=== PATIENT | female | born 1975 | race Two or more races ===

== ENCOUNTER → 2022-03-04 | Outpatient (CLI) | payer BC ==
--- NOTE | 2022-03-04 17:12 | RAD ---
DATE: 03/04/2022 EXAM: US BREAST RT, MG DIAGNOSTIC BILAT HISTORY: Clear right nipple discharge for one year COMPARISON: Mammograms 12/22/2019 and 01/11/2019 from outside hospital This study was interpreted with the benefit of Computerized Aided Detection (CAD). Breast Density: SCATTERED The breast parenchyma shows scattered fibroglandular densities. Breast pare nchyma level B. FINDINGS: There is no suspicious mass, suspicious calcifications, or architectural distortion in eith er breast. Ultrasound in the retroareolar region of the right breast demonstrates a circumscribed hypoechoic mas s with posterior acoustic enhancement measuring 3 mm at 11:00. This has some internal echoes and is l ikely a complicated cyst. There is a similar-appearing hypoechoic circumscribed mass with posterior a coustic enhancement measuring 5 mm at 11 34 cm the nipple. This also has some internal echoes and is likely a complicated cyst. There is no ductal dilatation in the retroareolar region. IMPRESSION: Two small probably benign, hypoechoic masses at 11:00 and 11:30 in the retroareolar right breast, likely minimally complicated cysts. Recommend follow-up right breast ultrasound in 6 months to ensure stability. BI-RADS CATEGORY: 3 PROBABLY BENIGN FINDING(S)-SHORT INTERVAL FOLLOW-UP SUGGESTED RECOMMENDED FOLLOW-UP: 6M 6 MONTH FOLLOW-UP PQRS compliance statement: Patient information was entered into a reminder system with a target due d ate for the next mammogram. Mammography is a sensitive method for finding small breast cancers, but it does not detect them all a nd is not a substitute for careful clinical examination. A negative mammogram does not negate a clin ically suspicious finding and should not result in delay in biopsying a clinically suspicious abnorma lity. "Our facility is accredited by the [employer] Mammography Program." Electronically signed by: Renetta Shi MD (03/04/2022 5:10 PM) [id number]
== END ==
LOC: MAMMO 09:48
PROVIDERS: ATTEND Family Medicine
DX: N63.11 Unspecified lump in the right breast, upper outer quadrant (principal)
CPT/HCPCS: 76641; 77066